=== PATIENT | male | born 1950 | race Caucasian/White ===

== ENCOUNTER 2024-01-12 15:23 | Inpatient (IN) | payer MEDICARE ==
[~2024-01-12] VITALS: Ht 160 cm; Wt 54.9 kg
[2024-01-12 15:44] LABS: BASOPHILS % (AUTO) 0.4 % (0.0-2.0); EOSINOPHILS # (AUTO) 0.1 K/uL (0.0-0.7); HEMATOCRIT 46.2 % (36.7-47.1); HEMOGLOBIN 14.5 g/dL (12.5-16.3); LYMPHOCYTES # (AUTO) 0.8 K/uL (0.8-4.8); LYMPHOCYTES % (AUTO) 11.1 % (20.5-51.5); MEAN CORPUSCULAR HEMOGLOBIN 29.8 uug (23.8-33.4); MEAN CORPUSCULAR HGB CONC 31 g/dL (32.5-36.3); MEAN CORPUSCULAR VOLUME 94.8 fL (73.0-96.2); MONOCYTES # (AUTO) 0.6 K/uL (0.1-1.30); MONOCYTES % (AUTO) 8.3 % (0.0-11.0); NEUTROPHILS # (AUTO) 5.8 K/uL (1.8-8.9); NEUTROPHILS % (AUTO) 79.2 % (38.5-71.5); PLATELET COUNT (AUTO) 268 K/uL (152-348); RED BLOOD CELL COUNT(AUTO) 4.87 MIL/uL (4.06-5.63); RED CELL DISTRIBUTION WIDTH 14.5 % (12.1-16.2); WHITE BLOOD COUNT (AUTO) 7.3 K/uL (3.6-10.2)
[2024-01-12] MEDS ORDERED: BENZ1TAB7 PO (15:47)
[2024-01-12] MEDS ORDERED: LITH300T3 PO (15:47)
[2024-01-12] MEDS ORDERED: LITH600C PO (15:47)
[2024-01-12] MEDS ORDERED: BENZ0.5T43 PO (15:47)
[2024-01-12] MEDS ORDERED: DOXE25CA18 PO (15:47)
[2024-01-12] MEDS ORDERED: DOXE50CA4 PO (15:47)
[2024-01-12] MEDS ORDERED: ARIP5TAB59 PO (15:47)
[2024-01-12 15:59] LABS: DIFFERENTIAL COMMENT 1; ETHANOL < 3 MG/DL (0-10)
[2024-01-12 16:00] LABS: *BILIRUBIN,URIN NEGATIVE (NEGATIVE); *BLOOD, URINE NEGATIVE (NEGATIVE); *CLARITY,URINE CLEAR (CLEAR); *COLOR,URINE YELLOW (YELLOW); *KETONES,URINE NEGATIVE (NEGATIVE); *PROTEIN,URINE NEGATIVE (NEGATIVE); *UROBILINOGEN,URINE 0.2 E.U./dl (NORMAL); LEUKOCYTE ESTERASE ,URINE NEGATIVE (NEGATIVE); NITRITE, URINE NEGATIVE (NEGATIVE); UGLUCOSE NEGATIVE (NEGATIVE)
[2024-01-12 16:03] LABS: CARBON DIOXIDE 28 mmol/L (21-32); CHLORIDE 106 mmol/L (98-107); CREATININE 0.9 mg/dL (0.6-1.3); GLUCOSE 117 mg/dL (74-106); SODIUM SERUM 140 mmol/L (136-145); UREA NITROGEN, BLOOD 13 mg/dL (7-18)
[2024-01-12 16:08] LABS: *AMPHETAMINE, URINE NEGATIVE (NEGATIVE); *BARBITURATE, URINE NEGATIVE (NEGATIVE); *BENZODIAZEPINE, URINE NEGATIVE (NEGATIVE); *CANNABINOID, URINE NEGATIVE (NEGATIVE); *COCCAINE, URINE NEGATIVE (NEGATIVE); *OPIATE, URINE NEGATIVE (NEGATIVE); *PHENCYCLIDINE SCREEN,URINE NEGATIVE (NEGATIVE); ALANINE AMINOTRANSFERASE 15 U/L (16-63); ALBUMIN 3.9 g/dL (3.4-5.0); ALKALINE PHOSPHATASE 54 U/L (50-136); ASPARTATE AMINOTRANSFERASE 14 U/L (15-37); BILIRUBIN,DIRECT 0.2 mg/dL (0.0-0.2); BILIRUBIN,TOTAL 0.6 mg/dL (0.2-1.0); FENTANYL, URINE NEGATIVE (NEGATIVE); TOTAL PROTEIN, SERUM 7.5 g/dL (6.4-8.2)
[2024-01-12 16:09] LABS: ACETAMINOPHEN < 2.0 ug/mL (10-30)
[2024-01-12 20:00] VITALS: BP 146/91; TEMP 97.8; O2SAT 97
[2024-01-12] MEDS ORDERED: ZOLPIDEM 5 MG TABLET PO PRN (21:00)
[2024-01-12] MEDS ORDERED: ACETAMINOPHEN 325 MG TABLET PO PRN (21:00)
[2024-01-12] MEDS: BLOOD SUGAR DIAGNOSTIC 1 EACH STRIP VI ONE (21:00)
[2024-01-12] MEDS ORDERED: MAG HYDROX/AL HYDROX/SIMETH 30 ML LIQUID UDC PO PRN (21:00)
[2024-01-12] MEDS ORDERED: hydrALAZINE HCL 25 MG TABLET PO PRN (21:15)
[2024-01-13] MEDS ORDERED: hydrALAZINE HCL 25 MG TABLET PO PRN (05:57)
[2024-01-13 07:47] VITALS: BP 153/93; TEMP 98.4; O2SAT 97
[2024-01-13 08:24] LABS: BASOPHILS % (AUTO) 0.6 % (0.0-2.0); EOSINOPHILS # (AUTO) 0.1 K/uL (0.0-0.7); EOSINOPHILS % (AUTO) 2.1 % (0.0-7.0); HEMATOCRIT 45.5 % (36.7-47.1); HEMOGLOBIN 14.5 g/dL (12.5-16.3); LYMPHOCYTES # (AUTO) 0.8 K/uL (0.8-4.8); LYMPHOCYTES % (AUTO) 12.6 % (20.5-51.5); MEAN CORPUSCULAR HEMOGLOBIN 30.2 uug (23.8-33.4); MEAN CORPUSCULAR HGB CONC 32 g/dL (32.5-36.3); MEAN CORPUSCULAR VOLUME 94.5 fL (73.0-96.2); MONOCYTES # (AUTO) 0.5 K/uL (0.1-1.30); MONOCYTES % (AUTO) 8.5 % (0.0-11.0); NEUTROPHILS # (AUTO) 4.6 K/uL (1.8-8.9); NEUTROPHILS % (AUTO) 76.2 % (38.5-71.5); PLATELET COUNT (AUTO) 258 K/uL (152-348); RED BLOOD CELL COUNT(AUTO) 4.81 MIL/uL (4.06-5.63); RED CELL DISTRIBUTION WIDTH 14.1 % (12.1-16.2)
[2024-01-13 08:33] LABS: DIFFERENTIAL COMMENT 1
[2024-01-13 08:43] LABS: ALBUMIN 3.4 g/dL (3.4-5.0); BILIRUBIN,TOTAL 0.7 mg/dL (0.2-1.0); CALCIUM 9.6 mg/dL (8.5-10.1); CREATININE 0.9 mg/dL (0.6-1.3); MAGNESIUM 2.1 mg/dL (1.8-2.4); PHOSPHOROUS 3.2 mg/dL (2.5-4.9); POTASSIUM 3.6 mmol/L (3.5-5.1); TOTAL PROTEIN, SERUM 6.7 g/dL (6.4-8.2)
[2024-01-13 09:10] LABS: THYROID STIMULATING HORMONE 0.133 mIU/mL (0.358-3.740)
[2024-01-13] MEDS: OLANZAPINE 2.5 MG TABLET PO SCH (09:19)
[2024-01-13] MEDS: LITHIUM CARBONATE 300 MG CAPSULE PO SCH (09:19)
[2024-01-13 15:12] VITALS: BP 132/99; TEMP 98; O2SAT 98
[2024-01-13] MEDS ORDERED: ROSU5TAB PO (15:41)
[2024-01-13 20:07] VITALS: BP 146/83; TEMP 98.1; O2SAT 96
[2024-01-13] MEDS: ATORVASTATIN 20 MG TABLET PO SCH (21:02)
[2024-01-13] MEDS: DOXEPIN 25 MG CAPSULE PO SCH (21:02)
[2024-01-14 07:37] VITALS: BP 145/88; TEMP 97.8; O2SAT 97
[2024-01-14 16:00] VITALS: BP 131/95; TEMP 97.8; O2SAT 97
[2024-01-14 20:00] VITALS: BP 136/88; TEMP 97.9; O2SAT 98
[2024-01-15 08:00] VITALS: BP 132/86; TEMP 98.2; O2SAT 99
[2024-01-15 15:20] VITALS: BP 122/78; TEMP 98; O2SAT 98
[2024-01-16 08:23] VITALS: BP 129/84; TEMP 98; O2SAT 97
[2024-01-16 17:01] VITALS: BP 119/79; TEMP 98.1; O2SAT 97
[2024-01-16] MEDS: OLANZAPINE 5 MG TABLET PO SCH (21:13)
[2024-01-16 23:40] VITALS: BP 130/77; TEMP 97.9; O2SAT 97
[2024-01-17] MEDS: diphenhydrAMINE 50 MG CAPSULE PO PRN (00:43)
[2024-01-17] MEDS: LORAZEPAM 1 MG TABLET PO PRN (02:02)
[2024-01-17 08:33] VITALS: BP 144/95; TEMP 98.2; O2SAT 97
[2024-01-17] MEDS ORDERED: LORAZEPAM 1 MG TABLET PO PRN (09:30)
[2024-01-17] MEDS ORDERED: diphenhydrAMINE 50 MG CAPSULE PO PRN (09:30)
[2024-01-17] MEDS ORDERED: diphenhydrAMINE 25 MG CAP PO PRN (10:00)
[2024-01-17 15:57] VITALS: BP 127/83; TEMP 98; O2SAT 97
[2024-01-17 20:00] VITALS: BP 126/87; TEMP 98.1; O2SAT 96
[2024-01-18] MEDS: MAGNESIUM HYDROXIDE 30 ML LIQUID UDC PO PRN (06:38)
[2024-01-18] MEDS ORDERED: LORAZEPAM 0.5 MG TABLET PO PRN (07:00)
[2024-01-18 07:43] VITALS: BP 113/79; TEMP 98.2; O2SAT 98
[2024-01-18] MEDS: LITHIUM CARBONATE 150 MG CAPSULE PO SCH (08:39)
[2024-01-18] MEDS ORDERED: LITHIUM CARBONATE 150 MG CAPSULE PO SCH (09:00)
[2024-01-18 15:54] VITALS: BP 125/61; TEMP 98; O2SAT 97
[2024-01-18 20:27] VITALS: BP 116/66; TEMP 98.1; O2SAT 96
[2024-01-19 08:15] VITALS: BP 127/87; TEMP 98; O2SAT 98
== END 2024-01-19 15:25 | disposition home or self-care (01) | DRG 885 ==
LOC: ER 15:23 → GPS 20:35
PROVIDERS: ADMIT Psychiatry & Neurology Psychiatry; ATTEND Internal Medicine
DX: F31.64 Bipolar disorder, current episode mixed, severe, with psychotic features (principal); F41.9 Anxiety disorder, unspecified; S80.812A Abrasion, left lower leg, initial encounter; X58.XXXA Exposure to other specified factors, initial encounter; Y92.008 Other place in unspecified non-institutional (private) residence as the place of occurrence of the external cause; Z91.148 Patient's other noncompliance with medication regimen for other reason; Y92.039 Unspecified place in apartment as the place of occurrence of the external cause; Z91.81 History of falling; Z91.018 Allergy to other foods; Z79.899 Other long term (current) drug therapy; I10 Essential (primary) hypertension; M62.81 Muscle weakness (generalized); R27.9 Unspecified lack of coordination; R41.89 Other symptoms and signs involving cognitive functions and awareness
CPT/HCPCS: 36415; 70030-TC; 83735; 84100; 84443; 84481; 85025; 93005; G0480; Q0163